=== PATIENT | female | born 1935 | race Caucasian/White ===

== ENCOUNTER 2018-02-02 19:50 | Emergency (ER) | payer MEDICARE, OTHER ==
[~2018-02-02] VITALS: Ht 157.5 cm; Wt 56.2 kg
[2018-02-02] MEDS ORDERED: CANDESARTAN CILE8 MG PO ×2 (20:11→21:04)
[2018-02-02] MEDS ORDERED: SIMVASTATIN20 MG PO ×2 (20:11→21:04)
[2018-02-02] MEDS ORDERED: CELEXA10 MG PO (20:12)
[2018-02-02] MEDS ORDERED: AMLODIPINE BES2.5 MG PO (20:12)
[2018-02-02] MEDS ORDERED: CITALOPRAM HBR10 MG PO (21:04)
[2018-02-02] MEDS ORDERED: AMLODIPINE BESYL5 MG PO (21:04)
== END 2018-02-02 21:09 | disposition home or self-care (01) ==
LOC: ED 19:50
DX: Z76.0 Encounter for issue of repeat prescription (principal); I10 Essential (primary) hypertension; Z79.899 Other long term (current) drug therapy
CPT/HCPCS: 99281